=== PATIENT | male | born 1955 | race Caucasian/White ===

== ENCOUNTER 2021-01-20 14:15 | Emergency (ER) | payer OTHER ==
[~2021-01-20] VITALS: Ht 177.8 cm; Wt 87.1 kg
[2021-01-20] MEDS ORDERED: TDAP DIPH,PERTUSS,TET VAC/PF 0.5 ML DISP.SYRIN IM ONE ×2 (14:41→14:45)
[2021-01-20] MEDS ORDERED: LIDOCAINE HCL 2% 20 ML VIAL TP ONE (14:45)
[2021-01-20 14:53] VITALS: BP 147/79
== END 2021-01-20 14:54 | disposition home or self-care (01) ==
LOC: ER 14:15
DX: S01.511A Laceration without foreign body of lip, initial encounter (principal); X58.XXXA Exposure to other specified factors, initial encounter; Y92.89 Other specified places as the place of occurrence of the external cause
CPT/HCPCS: 12011; 99282; J3490; 90715; A4663

== ENCOUNTER 2021-01-29 12:55 | Emergency (ER) | payer SELFPAY ==
--- NOTE | 2021-01-29 13:00 | NUR ---
Pt stated he changed his mind and does not want to be seen in the ER and walked out.
== END 2021-01-29 13:03 | disposition left against medical advice (07) ==
LOC: ER 12:55
DX: Z53.21 Procedure and treatment not carried out due to patient leaving prior to being seen by health care provider (principal)
CPT/HCPCS: A4663